=== PATIENT | male | born 1955 | race Native Hawaiian/Other Pacific Islander ===

== ENCOUNTER 2021-06-01 10:36 | Emergency (ER) | payer OTHER ==
[~2021-06-01] VITALS: Ht 180.3 cm; Wt 97.5 kg
[2021-06-01 10:47] VITALS: BP 127/86; TEMP 96.9
[2021-06-01 11:29] LABS: PLATELET COUNT 254 K/uL (142-355); POTASSIUM 3.8 mmol/L (3.6-5.2)
== END 2021-06-01 12:17 | disposition home or self-care (01) ==
LOC: ED 10:36
PROVIDERS: Hospitalist
PROC: 0T9B70Z Drainage of Bladder with Drainage Device, Via Natural or Artificial Opening (ICD-10-PCS; principal; 2021-06-01)
DX: N40.1 Benign prostatic hyperplasia with lower urinary tract symptoms (principal); R33.8 Other retention of urine
CPT/HCPCS: 36415; 51702; 80048; 81000; 85027; 87077; 87086; 87088; 87186; 96372; 99283; J0696; J1885

== ENCOUNTER 2022-01-02 09:22 | Outpatient (CLI) | payer OTHER | END 2022-01-02 20:25 | disposition home or self-care (01) | LOC: US 09:22 | PROVIDERS: ATTEND Family Medicine | DX: Z87.891 Personal history of nicotine dependence (principal); Z13.6 Encounter for screening for cardiovascular disorders ==